=== PATIENT | female | born 1980 | race Hispanic/Latino ===

== ENCOUNTER 2021-11-10 19:28 | Emergency (ER) | payer BC ==
[~2021-11-10] VITALS: Ht 157.5 cm; Wt 73.9 kg
[2021-11-10 21:39] VITALS: BP 156/85
--- NOTE | 2021-11-10 22:27 | ER.PDOC ---
General Chief Complaint: Earache Stated Complaint: EAR ACHE/UNABLE TO HEAR Time seen by MD: 22:00 Source: patient Exam Limitations: no limitations History of Present Illness Initial Comments 41-year-old female with a few days of left ear pain. Fever and chills. Decreased hearing, ringing in her ears. Drainage from the canal as well Timing/Duration: gradual, yesterday Severity: moderate Location of Pain: (L) Ear Associated Symptoms: fever/chills, hearing loss, ringing in ears Past Medical History Medical History: no pertinent history Surgical History: Social History Alcohol Use: none Drug Use: none All Other Systems: Reviewed and Negative Physical Exam General Appearance: alert Ears: pain w/movement aucricle, (L) canal swelling TM's: bulging of TM (L), fluid/blood behind TM (L) Mouth/Throat: lips/gums nml Nose: nml inspection Head/Neck: atraumatic Eyes: eyes nml inspection Resp/CVS: no resp distress Abdomen: non-tender Skin Exam: Normal Color NEURO/PSYCH: oriented X3 Results/Orders Results/Orders Vital Signs Date Time Temp Pulse Resp B/P (MAP) Pulse Ox O2 Delivery O2 Flow Rate FiO2 11/10/21 21:39 101.3 78 18 11/10/21 21:39 101.3 78 18 156/85 (108) 99 Room Air* 0 21 11/10/21 21:39 101.3 78 18 99 ER DEPART Departure Time of Disposition: 22:26 Disposition: 01 HOME / SELF CARE / HOMELESS Impression: Primary Impression: Otitis media Additional Impression: Otitis externa Condition: Stable Referrals: PCP,UNKNOWN (PCP) PRIMARY CARE PROVIDER Duration or Time Spent with Pa: SAMIA Anderson MD Nov 10, 2021 22:27
[2021-11-10 22:38] VITALS: BP 148/85
== END 2021-11-10 22:38 | disposition home or self-care (01) ==
LOC: ER 19:28
DX: H66.92 Otitis media, unspecified, left ear (principal); H60.92 Unspecified otitis externa, left ear
CPT/HCPCS: 99283